=== PATIENT | female | born 1950 | race Caucasian/White ===

== ENCOUNTER → 2016-10-20 | Day surgery (SDC) | payer OTHER ==
[~2016-10-20] MED LIST: ASPIRIN CHEWABL81 MG PO; ASPIRIN325 MG PO; BENTYL20 MG PO; BUPROPION XL150 MG PO; CARDIZEM CD120 MG PO; CEFDINIR300 MG PO; COREG12.5 MG PO; COREG25 MG PO; COZAAR50 MG PO; DILTIAZEM 24HR120 MG PO; ELIQUIS5 MG PO; FLUOXETINE HCL40 MG PO; FLUTICASONE PRO16 GM PO; GABAPENTIN800 MG PO; GLUCOPHAGE500 MG PO; KLONOPIN2 MG PO; KLOR-CON M2020 MEQ PO; LASIX40 MG PO; METFORMIN HCL500 M1 PO; MOBIC7.5 MG PO; MS CONTIN30 MG PO; NEURONTIN800 MG PO; NITROQUIK SL0.4 MG PO; POTASSIUM CHLO10 MEQ PO; PROTONIX 40MG T40 MG PO; PROTONIX40 MG PO; PROZAC40 MG PO; TRAZODONE 100M100 MG PO; XARELTO20 MG PO; ZITHROMAX500 MG PO
[2016-10-20 08:28] LABS: INR 1.2 (0.9-1.2); PROTHROMBIN TIME 14.8 SECONDS (11.7-14.0); PTT 32.4 SECONDS (23.2-31.4)
[2016-10-20 08:32] LABS: CREATININE 0.9 mg/dL (0.5-1.0)
== END | disposition home or self-care (01) ==
LOC: FAS 08:24
PROVIDERS: Anesthesiology
DX: K29.50 Unspecified chronic gastritis without bleeding (principal); Z88.8 Allergy status to other drugs, medicaments and biological substances; K21.9 Gastro-esophageal reflux disease without esophagitis; Z79.82 Long term (current) use of aspirin; Z79.899 Other long term (current) drug therapy; E11.9 Type 2 diabetes mellitus without complications; I48.91 Unspecified atrial fibrillation; M19.90 Unspecified osteoarthritis, unspecified site; F41.9 Anxiety disorder, unspecified; E78.5 Hyperlipidemia, unspecified; E78.00 Pure hypercholesterolemia, unspecified; I25.10 Atherosclerotic heart disease of native coronary artery without angina pectoris; Z87.442 Personal history of urinary calculi; G43.909 Migraine, unspecified, not intractable, without status migrainosus; I11.0 Hypertensive heart disease with heart failure; I50.9 Heart failure, unspecified; Z90.49 Acquired absence of other specified parts of digestive tract; Z90.710 Acquired absence of both cervix and uterus; Z98.51 Tubal ligation status; Z77.22 Contact with and (suspected) exposure to environmental tobacco smoke (acute) (chronic)
CPT/HCPCS: 36415; 80048; 85610; 85730; 88305; 88312; J2704